=== PATIENT | male | born 1955 | race Caucasian/White ===

== ENCOUNTER 2018-01-26 06:06 | Emergency (ER) | payer OTHER ==
[2018-01-26 06:39] VITALS: TEMP 98
[2018-01-26 06:45] LABS: HEMOGLOBIN 14.5 g/dL (14.0-18.0); MEAN CELL VOLUME 92.3 fl (80.0-105.0); MEAN CORPUSCULAR HEMOGLOBIN 32.1 pg (25.0-35.0); MEAN CORPUSCULAR HGB CONC 34.8 g/dl (31.0-37.0); MEAN PLATELET VOLUME 8.7 fl (7.0-11.0); RBC 4.52 10^6/uL (3.5-6.1); RED CELL DISTRIBUTION WIDTH 11.9 % (11.5-14.5); WHITE BLOOD COUNT 4.5 10^3/ul (4.5-11.0)
--- NOTE | 2018-01-26 06:45 | ED PDOC ---
Arrival/HPI - General Chief Complaint: Palpitations Time Seen by Provider: 01/26/18 06:31 - History of Present Illness Narrative History of Present Illness (Text): 01/26/18 06:30 Patient to ED past medical hx. of hypothryoidism with complaint of intermittent palpitations this morning preventing him from sleeping.Patient states he has been experiencing transient palpitations recently day or night.He denies any chest pain or shortness of breath.No leg or back pain.No fever.No nausea, vomiting or diarrhea.No drug use.States he is compliant with his Synthroid meds. Past Medical History - Provider Review Nursing Documentation Reviewed: Yes - Travel History Have you recently traveled outside [place] w/in the past 3 mons?: No - Cardiac Hx Cardiac Disorders: No - Pulmonary Hx Respiratory Disorders: No - Neurological Hx Neurological Disorder: No - HEENT Hx HEENT Disorder: No - Renal Hx Renal Disorder: No - Endocrine/Metabolic Hx Hypothyroidism: Yes - Psychiatric Hx Substance Use: No Family/Social History - Physician Review Nursing Documentation Reviewed: Yes Family/Social History: Diabetes Smoking Status: Never Smoked Hx Alcohol Use: No Hx Substance Use: No Allergies/Home Meds Allergies/Adverse Reactions: Allergies Sulfa (Sulfonamide Antibiotics) Allergy (Mild, Verified 01/26/18 06:10) RASH Home Medications: Home Meds Medication Instructions Recorded Confirmed Levothyroxine [Synthroid] 100 mcg PO 01/26/18 Review of Systems - Review of Systems Constitutional: Normal Eyes: Normal ENT: Normal Respiratory: Normal Cardiovascular: Palpitations Gastrointestinal: Normal Genitourinary Male: Normal Musculoskeletal: Normal Skin: Normal Neurological: Normal Endocrine: Normal Hemo/Lymphatic: Normal Psychiatric: Normal Physical Exam Vital Signs Temp Pulse Resp BP Pulse Ox 01/26/18 06:39 98.0 F 01/26/18 06:19 75 16 133/72 100 Temperature: Afebrile Blood Pressure: Normal Pulse: Regular Respiratory Rate: Normal Appearance: Positive for: Well-Appearing, Non-Toxic, Comfortable Pain Distress: None Mental Status: Positive for: Alert and Oriented X 3 - Systems Exam Head: Present: Atraumatic, Normocephalic Pupils: Present: PERRL Extroacular Muscles: Present: EOMI Conjunctiva: Present: Normal Mouth: Present: Moist Mucous Membranes Neck: Present: Normal Range of Motion Respiratory/Chest: Present: Clear to Auscultation, Good Air Exchange. No: Respiratory Distress, Accessory Muscle Use Cardiovascular: Present: Regular Rate and Rhythm, Normal S1, S2. No: Murmurs Abdomen: No: Tenderness, Distention, Peritoneal Signs Back: Present: Normal Inspection Upper Extremity: Present: Normal Inspection. No: Cyanosis, Edema Lower Extremity: Present: Normal Inspection, NORMAL PULSES, Normal ROM, Neurovascularly Intact. No: Edema, CALF TENDERNESS, Nahid's Sign Neurological: Present: GCS=15, CN II-XII Intact, Speech Normal, Motor Func Grossly Intact, Normal Sensory Function Skin: Present: Warm, Dry, Normal Color. No: Rashes Psychiatric: Present: Alert, Oriented x 3, Normal Insight, Normal Concentration Medical Decision Making ED Course and Treatment: 01/26/18 07:00 Case endorsed to /pending labs/CXR/reassess/final disposition - RAD Interpretation Radiology Orders: 01/26/18 06:39 CHEST PORTABLE [RAD] Stat - EKG Interpretation EKG Interpretation (Text): 01/26/18 06:20 EKG-NSR @78,no acute changes Interpreted by ED Physician: Yes Type: 12 lead EKG Disposition/Present on Arrival - Present on Arrival Any Indicators Present on Arrival: No History of DVT/PE: No History of Uncontrolled Diabetes: No Urinary Catheter: No History of Decub. Ulcer: No History Surgical Site Infection Following: None - Disposition Have Diagnosis and Disposition been Completed?: No Diagnosis: Palpitations Disposition Time: 07:00 Condition: STABLE Forms: [employer] (Bolivian)
[2018-01-26] MEDS ORDERED: Lidocaine PF 2% (5 ml) Inj (For Cardiac Arrhy) ONE (06:50)
[2018-01-26] MEDS ORDERED: Phenylephrine 10 mg/ml Inj ONE (06:50)
[2018-01-26] MEDS ORDERED: Iodixanol 320 MG/ML 200 ML BOTTLE IV ONE (06:51)
[2018-01-26] MEDS ORDERED: Iohexol 350mgl/ml 50 ML ONE (06:51)
[2018-01-26] MEDS ORDERED: Nitroglycerin 50mg in D5W 0 MG/0 ML BOTTLE IV ONE (06:51)
[2018-01-26] MEDS ORDERED: Iodixanol 320 MG/ML 100 ML BOTTLE IV ONE (06:51)
[2018-01-26] MEDS ORDERED: Heparin 0 ML IV ONE (06:52)
[2018-01-26 06:58] LABS: ALB/GLOB RATIO 1.2 (1.1-1.8); ALBUMIN 4.1 g/dL (3.0-4.8); ALT/SGPT 17 U/L (7-56); AST/SGOT 30 U/L (17-59); BLOOD UREA NITROGEN 8 mg/dL (7-21); CALCIUM 9.1 mg/dL (8.4-10.5); GFR NON-AFRICAN AMERICAN > 60
[2018-01-26 07:01] LABS: INR 1.09; PARTIAL THROMBOPLASTIN TIME 32.2 Seconds (25.1-36.5); PROTHROMBIN TIME 12.6 SECONDS (9.4-12.5)
[2018-01-26 07:08] LABS: TROPONIN I < 0.01 ng/mL
[2018-01-26 07:14] LABS: FREE T4 1.3 ng/dL (0.78-2.19)
--- NOTE | 2018-01-26 07:24 | ED PDOC ---
Physical Exam Vital Signs Temp Pulse Resp BP Pulse Ox 01/26/18 07:36 68 18 137/77 99 01/26/18 06:39 98.0 F 01/26/18 06:19 75 16 133/72 100 Medical Decision Making ED Course and Treatment: 01/26/18 07:01 Patient endorsed to me by Dr. Fields. Currently pending lab work results and Chest X-ray findings. Patient awaiting to be reassessed and for final disposition. 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 patient feels well at this time, no lightheadedness, no palpitations, no chest pain or dyspnea. patient only reports that his feet feel cold but on exam there are normal pedal pulses bilat, good cap refill, peripheral circulation maintains integrity with knee bending. patient feels well to go home and will follow up with pcp. 01/26/18 07:49 patient also reports he has been feeling anxious and depressed but not suicidal. this would certainly cause palpitations. patient referred back to pcp. - Lab Interpretations Lab Results: 01/26/18 06:17 01/26/18 06:17 Lab Results 01/26/18 06:17: WBC 4.5, RBC 4.52, Hgb 14.5, Hct 41.7 L, MCV 92.3, MCH 32.1, MCHC 34.8, RDW 11.9, Plt Count 225, MPV 8.7 01/26/18 06:17: Free T4 1.30, TSH 3rd Generation 1.87 01/26/18 06:17: Sodium 139, Potassium 3.6, Chloride 102, Carbon Dioxide 27, Anion Gap 13, BUN 8, Creatinine 0.6 L, Est GFR ( Amer) > 60, Est GFR (Non -Af Amer) > 60, Random Glucose 107, Calcium 9.1, Total Bilirubin 0.6, AST 30, ALT 17, Alkaline Phosphatase 66, Lactate Dehydrogenase 462, Total Creatine Kinase 55, Troponin I < 0.01, Total Protein 7.6, Albumin 4.1, Globulin 3.4, Albumin/Globulin Ratio 1.2 01/26/18 06:17: PT 12.6 H, INR 1.09, APTT 32.2 - RAD Interpretation Radiology Orders: 01/26/18 06:39 CHEST PORTABLE [RAD] Stat cxr my read: no focal infiltrate, no ptx, cardiomegaly - EKG Interpretation EKG Interpretation (Text): 01/26/18 07:35 0612: nsr at 78 bpm, nml qrs, nml axis, no acute sttw abn Interpreted by ED Physician: Yes - Scribe Statement The provider has reviewed the documentation as recorded by the Harlan Wu Provider Scribe Attestation: All medical record entries made by the Scribe were at my direction and personally dictated by me. I have reviewed the chart and agree that the record accurately reflects my personal performance of the history, physical exam, medical decision making, and the department course for this patient. I have also personally directed, reviewed, and agree with the discharge instructions and disposition. Disposition/Present on Arrival - Present on Arrival Any Indicators Present on Arrival: No History of DVT/PE: No History of Uncontrolled Diabetes: No Urinary Catheter: No History of Decub. Ulcer: No History Surgical Site Infection Following: None - Disposition Have Diagnosis and Disposition been Completed?: Yes Diagnosis: Palpitations, Depression Disposition: HOME/ ROUTINE Disposition Time: 07:50 Patient Plan: Discharge Patient Problems: Current Active Problems Problem Status Onset Palpitations Acute Condition: STABLE Discharge Instructions (ExitCare): Depression, Adult (DC), Palpitations Print Language: HUNGARIAN Additional Instructions: Follow up with your primary care doctor for further evaluation and potential cardiology referral. BERNADINE NUNES, thank you for letting us take care of you today. Your provider was Dr. Daniele Jonhson and you were treated for palpitations and anxiety/ depression. The emergency medical care you received today was directed at your acute symptoms. If you were prescribed any medication, please fill it and take as directed. It may take several days for your symptoms to resolve. Return to the Emergency Department if your symptoms worsen, do not improve, or if you have any other problems. Please contact your doctor or call one of the physicians/clinics you have been referred to that are listed on the Patient Visit Information form that is included in your discharge packet. Bring any paperwork you were given at discharge with you along with any medications you are taking to your follow up visit. Our treatment cannot replace ongoing medical care by a primary care provider outside of the emergency department. Thank you for allowing the [facility] team to be part of your care today. If you had an X-Ray or CT scan: A Radiologist will review the ED reading if any change in treatment is needed we will contact you. If you had a blood, urine, or wound culture: It will take several days for the results, if any change in treatment is needed we will contact you. If you had an STI test: It will take 48 hours for the results. Please call after 1 week if you have not heard back. Referrals: Devin Rodriguez MD [Staff Provider] - Follow up with primary Forms: [employer] (Maltese)
[2018-01-26 07:36] VITALS: RESP 18; O2SAT 99
[2018-01-26 08:39] VITALS: BP 129/74; PULSE 64
--- NOTE | 2018-01-26 09:33 | RAD ---
Date of service: 01/26/2018 HISTORY: palpitations COMPARISON: No prior. FINDINGS: LUNGS: No active pulmonary disease. PLEURA: No significant pleural effusion identified, no pneumothorax apparent. CARDIOVASCULAR: Normal. OSSEOUS STRUCTURES: No significant abnormalities. VISUALIZED UPPER ABDOMEN: Normal. OTHER FINDINGS: None. IMPRESSION: No active disease.
--- NOTE | 2018-01-26 20:56 | CARD ---
APPROVED REPORT Date of service: 01/26/2018 EKG Measurement Heart [id number] <Conclusion> Normal sinus rhythm Normal ECG
== END 2018-01-26 08:41 | disposition home or self-care (01) ==
LOC: ED 06:06
DX: R00.2 Palpitations (principal); F32.9 Major depressive disorder, single episode, unspecified; E03.9 Hypothyroidism, unspecified